=== PATIENT | female | born 1945 | race Caucasian/White ===

== ENCOUNTER 2018-10-31 18:52 | Observation (INO) | payer MEDICARE ==
[~2018-10-31] VITALS: Ht 157.5 cm; Wt 81.6 kg
--- NOTE | ~2018-10-31 | HEMODYNAMI ---
PATIENT:MELONY CHÁVEZ MEDICAL RECORD: [id number] : 45 LOCATION:[facility] D.2114 ADMISSION DATE: 10/31/18 Generatedon:11/01/201811:05 Patient name: MELONY CHÁVEZ Patient #: [id number] SSN: D OB: 1945 Date of study: 11/01/2018 Page: Of Hemodynamic Procedure Report Patient Data Patient Demographics Procedure consent was obtained First Name: MELONY Gender: Female Last Name: KYLER : 1945 Patient #: [id number] Age: 73 year(s) Race: Unknown Additional ID: [id number] Contact details [address]: [address] [place] [address] State: [place] City: [place] Zip code: [address] Admission Admission Data Admission Date: 10/31/2018 Admission Time: 20:09 Room #: D.2114 Lab Results Lab Result Date: 11/01/2018 Lab Result Time: 0:00 Biochemistry Name Units Result Min Max BUN mg/dl 16 --(---*)-- 7 18 Creatinine mg/dl 0.7 --(*---)-- 0.6 1.3 CBC Name Units Result Min Max Hemoglobin g/dl 11.9 *-(----)-- 13.5 17.5 Procedure Procedure Types Cath Procedure Diagnostic Procedure [facility] w/Coronaries Procedure Description Procedure Date Procedure Date: 11/01/2018 Procedure Start Time: 10:53 Procedure End Time: 11:02 Procedure Staff Name Function Dominick Oconnor RT Scrub Angelina Mosqueda RT Monitor Sotero Ma MD Performing Physician Lei Louis RT Display Decorator Daisy Han RN Nurse Procedure Data Cath Procedure Fluoroscopy Diagnostic fluoroscopy Total fluoroscopy Time: 1.3 time: 1.3 min min Diagnostic fluoroscopy Total fluoroscopy dose: 427 dose: 427 mGy mGy Contrast Material Contrast Material Type Amount (ml) Isovue 370 57 Entry Location Entry Primary Successful Side Size Upsize Upsize Entry Closure Servin ccessful Closure Location (Fr) 1 (Fr) 2 (Fr) Remarks Device Remarks Radial Right 6 Fr Mechanical artery Short Compression Estimated blood loss: 5 ml Diagnostic catheters Device Type Used For End Catheter Placement DIAGNOSTIC [place] 110cm 5 Multi-vessel Fr catheter ([id number]) Angiography Procedure Complications No complications Procedure Medications Medication Administration Route Dosage 0.9% NaCl I.V. 100 ml/hr Oxygen etCO2 Nasal cannula 2 l/min Lidocaine 2% added to field 20 Heparin Flush Bag added to field 2 bags (1000units/500ml NS) Versed I.V. 2 mg Fentanyl I.V. 50 mcg Hemodynamics Rest HGB: 11.9 (g/dl) Heart Rate: 95 (bpm) Pressure Samples Time Site Value (mmHg) Purpose Heart Use Rate(bpm) 10:57 LV 106/17,11 Snapshot 84 Snapshots Pre Cath Intra NCS Post Cath Vital Signs Time Heart Resp SPO2 etCO2 NIBP (mmHg) Rhythm Pain Sedation Rate (ipm) (%) (mmHg) Status Level (bpm) 10:29:38 70 10 98 39.2 181/88(139) NSR 0 (11) 10(A) , No pain 10:34:02 73 15 96 33.2 182/98(141) NSR 0 (11) 10(A) , No pain 10:38:20 69 39 93 37.7 150/83(129) NSR 0 (11) 10(A) , No pain 10:42:42 67 13 96 38.5 159/79(121) NSR 0 (11) 10(A) , No pain 10:47:04 62 13 96 38.5 144/76(132) NSR 0 (11) 10(A) , No pain 10:51:28 66 17 96 35.4 153/69(129) NSR 0 (11) 9(A) , No pain 10:55:55 72 27 96 36.9 145/76(122) NSR 0 (11) 9(A) , No pain 11:00:17 76 17 98 36.2 127/71(111) NSR 0 (11) 10(A) , No pain Medications Time Medication Route Dose Verified Delivered Reason Notes Eff ectiveness by by 10:28:33 0.9% NaCl I.V. 100 Soteroleisa Chavarriaa used for ml/hr Francesca Han riverboat captain 10:28:49 Oxygen etCO2 2 Sotero Chavarriaa used for Nasal l/min Francesca Han procedure cannula RN 10:28:54 Lidocaine 2% added 20ml Sotero Bey for local to vial Francesca Ma MD anesthetic field 10:28:59 Heparin Flush added 2 Sotero Sotero used for Bag to bags Francesca Ma MD procedure (1000units/500ml field NS) 10:50:04 Versed I.V. 2 mg Sotero Chavarriaa for Francesca Han sedation RN 10:50:10 Fentanyl I.V. 50 Sotero Daisy for mcg Francesca Han sedation fixture builder Log Time Note 10:00:48 Lei Suit RT(R) sent for patient. Start room use. 10::49 Time tracking: Regular hours (M-F 7:00 - 5:00) 10:13:52 Plan of Care:Hemodynamics will remain stable., Cardiac rhythm will remain stable., Comfort level will be maintained., Respiratory function will remain adequate., Patient/ family verbilizes understanding of procedure., Procedure tolerated without complication., Recovers from procedure without complications.. 10:19:45 Lab Result : Hemoglobin 11.9 g/dl 10:19:45 Lab Result : Creatinine 0.7 mg/dl 10:19:45 Lab Result : BUN 16 mg/dl 10:20:15 Patient received from Med II to [facility] 2 Alert and oriented. Tansferred to table in Supine position. 10:20:17 Correct patient and procedure confirmed by team. 10:20:17 Warm blankets applied, and jorge luis hugger turned on for patient comfort. 10:20:19 Signed procedure consent form obtained from patient. 10:20:20 ECG and BP/O2 sat monitors applied to patient. 10:28:20 Vital chart was started 10:28:33 0.9% NaCl 100 ml/hr I.V. was administered by Daisy Han RN; used for procedure; 10::49 Oxygen 2 l/min etCO2 Nasal cannula was administered by Daisy Han RN; used for procedure; 10:28:54 Lidocaine 2% 20ml vial added to field was administered by Sotero Ma MD; for local anesthetic; 10:28:59 Heparin Flush Bag (1000units/500ml NS) 2 bags added to field was administered by Sotero Ma MD; used for procedure; 10:34:02 Baseline sample Acquired. 10:34:43 Rhythm: sinus rhythm 10:34:51 Full Disclosure recording started 10:35:01 H&P Date Dictated: 11/01/2018 New H&P dictated by physician.. 10:35:04 Pre-op teaching completed and patient verbalized understanding. 10:35:04 Pre-procedure instructions explained to patient. 10:35:06 Family in waiting room. 10:35:07 Patient NPO since Midnight. 10:35:09 Is the patient allergic to Iodine/contrast media? No. 10:35:10 Was the patient premedicated? N/A 10:35:18 Is patient on blood thinner?No 10:35:19 Patient diabetic? No. 10:35:21 Previous problem with sedation/anesthesia? No ? 10:35:23 Snore? Yes 10:35:24 Deviated septum? No 10:35:24 Sleep apnea? No 10:35:26 Opens mouth fully? Yes 10:35:27 Sticks out tongue? Yes 10:35:28 Airway obstruction? No ? 10:35:32 Dentures? Yes in tight 10:36:16 Pre procedure: right dorsailis pedis pulse 2+ Normal; easily identifiable; not easily obliterated 10:36:19 Pre procedure: left dorsailis pedis pulse 2+ Normal; easily identifiable; not easily obliterated 10:36:28 Patient pain scale 0/10 ?. 10:37:03 IV patent on arrival in left forearm with 0.9% NaCl at [facility]. 10:37:06 Lab results completed and on chart. 10:37:09 Right Radial & Right Groin area was prepped with chlora-prep and draped in sterile fashion 10:37:10 Sharps counted by scrub and verified by R.N. 10:37:10 Alarms reviewed by R. N. 10:48:51 Zero performed for pressure channel P1 10:49:10 Physician arrived 10:49:11 Final Timeout: patient, procedure, and site verified with staff and physician. All members of the team are in agreement. 10:49:11 --------ALL STOP TIME OUT------ 10:49:13 Right Radial & Right Groin site verified by team. 10:49:16 Maximum allowable Isovue 370 dose 300ml. Physician notified. (300ml for normal creatinines. For patients with creatinine of 1.7 or higher multiply weight(kg) x 5 divided by creatinine.) 10:49:20 Fire Safety Assessment: A--An alcohol-based skin anteseptic being used preoperatively., C--Open oxygen or nitrous oxide is being used., D--An ESU, laser, or fiber-optic light is being used. 10:49:23 Physical assessment completed. ASA score P 2 - A patient with mild systemic disease as per Sotero Ma MD. 10:49:27 Sedation plan: IV Moderate Sedation Medication:Versed, Fentanyl 10:49:30 Use device set Radial Dx or PCI 10:49:32 Medline Cath Pack ([id number]) opened to sterile field. 10:49:32 ACIST Syringe (27281) opened to sterile field. 10:49:33 ACIST Hand Control (28503) opened to sterile field. 10:49:33 DIAGNOSTIC WIRE .035 260cm J wire (769296) opened to sterile field. 10:49:33 Bag Decanter (2002S) opened to sterile field. 10:49:34 Tegaderm 4 x 4 (1626W) opened to sterile field. 10:49:34 ACIST Manifold (48718) opened to sterile field. 10:49:35 MBrace Wrist Support ([id number]) opened to sterile field. 10:49:36 SHEATH 6FR Slender (44-2226) opened to sterile field. 10:50:04 Versed 2 mg I.V. was administered by Daisy Han RN; for sedation; 10:50:10 Fentanyl 50 mcg I.V. was administered by Daisy Han RN; for sedation; 10:53:14 Procedure started. 10:53:30 Local anesthetic to right radial artery with Lidocaine 2% by Sotero Ma MD.INITIAL ACCESS ONLY 10:55:20 A 6 Fr Short sheath was inserted into the Right Radial artery 10:55:39 A DIAGNOSTIC [place] 110cm 5 Fr catheter ([id number]) was advanced over the wire and used for Multi-vessel Angiography. 10:57:11 LV hemodynamics recorded. 10:57:13 LV gram done using AMEZCUA 10:57:23 Injector settings: Ml/sec: 5, Volume: 15, 10:57:28 EF : 60 % 10:57:42 LCA angiography performed. 10:57:44 Injector settings: Ml/sec: 3, Volume: 6, 10:59:40 RCA angiography performed. 11:00:06 Injector settings: Ml/sec: 3, Volume: 6, 11:00:23 Catheter removed. 11:01:16 TR BAND Standard ([id number]) opened to sterile field. 11:01:22 Sheath removed intact; hemostasis achieved with Mechanical Compression to the Right Radial artery. 11:01:24 Procedure ended.(Physican Out) 11:01:51 Fluoroscopy time 01.30 minutes. 11:01:55 Fluoroscopy dose: 427 mGy 11:01:55 Flurop Dose total: 427 11:01:58 Contrast amount:Isovue 370 57ml. 11:02:01 Sharps counted by scrub and verified by R.N. 11:02:03 TR band inflated with 12cc of air. 11:02:10 Insertion/operative site no bleeding no hematoma. 11:02:15 Post right radial artery:stable 11:02:16 Post Procedure Pulses reassessed and unchanged 11:02:19 Post procedure rhythm: unchanged. 11:02:21 Estimated blood loss: 5 ml 11:02:22 Post procedure instruction explained to patient.Patient verbalizes understanding. 11:02:23 Patient needs reinforcement of post procedure teaching. 11:02:29 Procedure and supply charges have been captured, reviewed, submitted and are correct. 11:02:33 Procedure Complication : No complications 11:02:36 Vital chart was stopped 11:02:37 See physician's report for complete and final results. 11:02:44 Report given to Med II. 11:02:46 Patient transfered to [facility] II with Stretcher. 11:02:49 Full Disclosure recording stopped 11:02:49 Procedure ended. 11:02:52 End room use (Document Last) Device Usage Item Name Manufacture Quantity Catalog Hospital Part Current Minimal Lot# / Number Charge Number Stock Stock Serial# Code ACIST Acist 1 60718 528153 484416 612524 20 Syringe AppSpotr (19149) Systems Inc Medline Medline 1 [id number] 775187 03564 468044 5 Cath Pack ([id number]) Bag Microtek 1 291681 57318 215059 5 Decanter Medical Inc. (2002S) DIAGNOSTIC [facility] 1 048119 119674 788135 081814 30 WIRE .035 260cm J wire (738461) ACIST Hand Acist 1 54270 990060 612775 356422 5 Control Medical (31276) Systems Inc ACIST Acist 1 14840 487657 745467 786615 5 Manifold Medical (20353) Systems Inc Tegaderm 4 3M 1 1626W 401200 175872 847210 5 x 4 (1626W) MBrace Advanced 1 140-0250-00 728376 51769 183154 5 Wrist Vascular Support Dynamics ([id number]) SHEATH 6FR Terumo 1 [id number] 463534 406146 962300 5 Slender (80-1060) DIAGNOSTIC Terumo 1 40-9621 500228 383848 025320 5 [place] 110cm 5 Fr catheter (469180) TR BAND Terumo 1 [id number] 200130 880151 110133 40 Standard ([id number]) Signature Audit [place] Stage Time Signature Unsigned Intra-Procedure 11/01/2018 Angelina Mosqueda 11:05:55 AM RT(R) Signatures Monitor : Angelina Mosqueda RT Signature : Date : Time : [place] [id number] [facility] [address]
--- NOTE | ~2018-10-31 | EC ---
PATIENT:MELONY CHÁVEZ DATE OF SERVICE: 10/31/18 SEX: F MEDICAL RECORD: [id number] DATE OF : 45 LOCATION:D. D.211 AGE OF PATIENT: 73 ADMISSION DATE: 10/31/18 REFERRING PHYSICIAN: INTERPRETING PHYSICIAN: CHRISTIE MA MD ECHOCARDIOGRAM REPORT ECHO CHARGES 4 ECHO COMPLETE Date: 11/01/18 CLINICAL DIAGNOSIS: MS ECHOCARDIOGRAPHIC MEASUREMENTS (adult normal given) AC root (d.<3.7cm) 2.1 cm LV Septum d (<1.2 cm> 1.3 cm Valve Excursion 0.9 cm LV Septum (systole) 1.5 cm Left Atria (s.<4.0cm> 3.6 cm LVPW d(<1.2cm) 1.6 cm RV (d.<2.3cm) 3.2 cm LVPW (sytole) 1.7 cm LV diastole(<5.6CM) 4.6 cm MV E-F(>70mm/sec) cm LV systole 2.7 cm LVOT Diameter 1.4 cm MV exc.(>10mm) 1.6 cm Est.ejection fraction (50-75%) % DOPPLER: LVIT cm/sec A 79.0 cm/sec E 88.0 cm/sec LA cm/sec RVSP 37 mmHg LVOT 131 cm/sec AOP1/2T m/s Asc. Ao 132 cm/sec RVOT 75 cm/sec RA cm/sec PA 107 cm/sec AV Gradient Peak 6.95 mmHg AV Mean 3.62 mmHg AV Area 1.5 cm MV Gradient Peak 4.23 mmHg MV Mean 1.88 mmHg MV Area cm COMMENTS: Research Specialist: 2 DOROTHEA SIDDIQUI Operations Management Professionals: 1 Dr. Ma TAPE# PACS Pericardial Effusion N DATE OF SERVICE: FINDINGS: 1. Left ventricular chamber size is within normal limits. Left ventricular systolic function is normal. Overall ejection fraction is estimated at 60%. 2. Left atrium, right atrium, and right ventricular sizes are within normal limit. 3. Valvular structures have normal structure and motion. 4. Doppler interrogation reveals mild aortic insufficiency, mild mitral regurgitation, and mild tricuspid regurgitation. No other valvular ECHOCARDIOGRAM REPORT [id number] MELONY CHÁVEZ insufficiency or stenosis. Pulmonary systolic pressure is estimated at 37 mmHg. 5. No evidence of pericardial effusion or left ventricular thrombus. TRANSINT:[id number] Voice Confirmation ID: [id number] DOCUMENT ID: [id number] CHRISTIE MA MD CC: [id number] DICTATION DATE: 11/01/18 1633 FOUNDRY MOLDER: 11/01/18 1729 ADM IN [facility] [address] [place] [address]
--- NOTE | ~2018-10-31 | DS ---
PATIENT:MELONY MUIR :45 MEDICAL RECORD: [id number] DISCHARGE SUMMARY ADMISSION DATE: 10/31/18 DISCHARGE DATE: 11/02/18 DATE OF SERVICE: 11/02/2018 DIAGNOSES: 1. Chest pain. 2. Hypertension. 3. Coronary artery disease. HOSPITAL COURSE: Mrs. Muir presents with chest pain compatible with angina; however, cardiac catheterization revealed minimal coronary disease. Her blood pressure was not well controlled. We placed her on Imdur as well as amlodipine. She had good control of her blood pressure, resolution of her symptomatology. She was discharged home to follow up with [facility] in 1 month. TRANSINT:[id number] Voice Confirmation ID: [id number] DOCUMENT ID: [id number] CHRISTIE AGUILAR MD CC: [id number] DICTATION DATE: 11/02/18924 BIAS MACHINE OPERATOR HELPER: 11/03/18724 DIS IN 11/02/18 [place] [id number] [place] [id number]
[2018-10-31] MEDS ORDERED: ZINC (19:04)
[2018-10-31] MEDS ORDERED: MAGNESIUM OXID500 MG (19:04)
[2018-10-31] MEDS ORDERED: OLIVE LEAF (19:05)
[2018-10-31] MEDS ORDERED: CINNAMON500 MG (19:05)
[2018-10-31] MEDS ORDERED: CALCIUM (19:05)
[2018-10-31] MEDS ORDERED: MOBIC7.5 MG PO (19:05)
[2018-10-31] MEDS ORDERED: SYNTHROID137 MCG PO (19:05)
[2018-10-31] MEDS ORDERED: FISH OIL (19:06)
[2018-10-31] MEDS ORDERED: NITROQUICK0.4 MG (19:06)
[2018-10-31] MEDS ORDERED: PRIMROSE OIL (19:06)
[2018-10-31 19:40] LABS: BASOPHILS 0.3 % (0-2); HEMATOCRIT 35.9 % (36.0-48.0); HEMOGLOBIN 11.9 g/dL (12-16); IMMATURE GRANULOCYTES 0.9 % (0-5); LYMPHOCYTES 16.8 % (15-50); MCH 29.8 pg (26.0-34.0); MCHC 33.1 g/dL (31.0-37.0); MCV 89.8 fL (80.0-100.0); MEAN PLATELET VOLUME 10.2 fL (7.4-10.4); MONOCYTES 9.3 % (2-11); NEUTROPHILS 70.7 % (40-80); PLATELET COUNT 179 10x3/uL (130-400); RDW 13.4 % (11.5-14.5)
[2018-10-31 19:52] VITALS: BP 154/67
[2018-10-31 19:59] LABS: INR 1.07 (0.85-1.17); PROTIME 13.4 SECONDS (11.6-15.0)
[2018-10-31 20:00] VITALS: BP 177/71
[2018-10-31 20:14] LABS: ALBUMIN 3.6 g/dL (3.4-5.0); ALKALINE PHOSPHATASE 102 U/L (46-116); ALT (SGPT) 32 U/L (10-68); CALC OSMOLALITY 279 mosm/kg (275-300); CALCIUM 8.6 mg/dL (8.5-10.1); CARBON DIOXIDE 26.6 mmol/L (21.0-32.0); CHLORIDE - SERUM 104 mmol/L (98-107); CREATININE - SERUM 0.5 mg/dL (0.6-1.3); GLUCOSE 114 mg/dL (74-106); POTASSIUM - SERUM 3.5 mmol/L (3.5-5.1); PROTEIN - SERUM 7.3 g/dL (6.4-8.2); SODIUM 140 mmol/L (136-145); UREA NITROGEN 12 mg/dL (7-18); eGFR NON AFRICAN AMERICAN > 90 mL/min (90-120)
[2018-10-31 20:24] LABS: CKMB 5.3 U/L (0.0-3.6); CREATINE KINASE 154 UL (21-215); MAGNESIUM - SERUM 1.6 mg/dL (1.8-2.4)
[2018-10-31 20:25] LABS: TROPONIN-I 0.128 ng/mL (0.000-0.060)
[2018-10-31] MEDS ORDERED: COMBIGAN OPHT DR5 ML EACH EYE (23:57)
[2018-10-31] MEDS ORDERED: XALATAN 0.0052.5 ML EACH EYE (23:57)
[2018-11-01] VITALS (7 sets, daily range): BP systolic 124–171; BP diastolic 58–86; Ht 157.5 cm; Wt 81.6 kg
[2018-11-01] MEDS ORDERED: SYNTHROID200 MC1 PO (00:16)
--- NOTE | 2018-11-01 00:57 | NUR ---
PATIENT RESTING COMFORTABLY IN BED. RESPIRATIONS ARE EVEN AND UNLABORED. NO S/S OF DISTRESS. NO C/O PAIN. DENIES NEEDS. CALL LIGHT WITHIN REACH. FAMILY AT BEDSIDE. WILL CPOC.
[2018-11-01 03:13] LABS: HEMATOCRIT 35.2 % (36.0-48.0); HEMOGLOBIN 11.9 g/dL (12-16); LYMPHOCYTES 24.6 % (15-50); MCH 30.7 pg (26.0-34.0); MCHC 33.8 g/dL (31.0-37.0); MCV 90.7 fL (80.0-100.0); MEAN PLATELET VOLUME 10.2 fL (7.4-10.4); NEUTROPHILS 64.4 % (40-80); PLATELET COUNT 179 10x3/uL (130-400); RBC 3.88 10x6/uL (4.00-5.40); RDW 13.4 % (11.5-14.5)
[2018-11-01 03:21] LABS: WBC 5.1 10x3/uL (4.8-10.8)
[2018-11-01 03:38] LABS: CALCIUM 8.7 mg/dL (8.5-10.1); CARBON DIOXIDE 28.9 mmol/L (21.0-32.0); CHLORIDE - SERUM 105 mmol/L (98-107); GLUCOSE 118 mg/dL (74-106); SODIUM 143 mmol/L (136-145)
[2018-11-01 04:10] LABS: CALC OSMOLALITY 286 mosm/kg (275-300); CREATININE - SERUM 0.7 mg/dL (0.6-1.3); TROPONIN-I 0.106 ng/mL (0.000-0.060); UREA NITROGEN 16 mg/dL (7-18); eGFR NON AFRICAN AMERICAN 87 mL/min (90-120)
--- NOTE | 2018-11-01 07:30 | NUR ---
ALERT AND ORIENTED. TELEMERTY SHOWS SR 71. LEFT FA SL. UP AB EMILEE. DENIES ANY NEEDS. FAMILY AT BEDSIDE. NPO FOR CATH TODAY
--- NOTE | 2018-11-01 11:27 | NUR ---
BACK FROM BIOPHYSICS PROFESSOR. TELEMERTY SHOWS NSR 58. CATH SITE TO RIGHT WRIST. FINGERSWARM. NO BLEEDING NOTED. SR UP WITH CALL LIGHT IN REACH
--- NOTE | 2018-11-01 14:05 | NUR ---
LYING QUIETLY. UNABLE TO TAKE TR BAND OFF DUE TO BLEEDING. V/S STABLE, TELEMERTY HOWS SR. DENIES ANY NEEDS
--- NOTE | 2018-11-01 17:17 | OP ---
PATIENT NAME: MELONY CHÁVEZ MEDICAL RECORD: [id number] :45 LOCATION:D.M2 D.2114 ADMISSION DATE:10/31/18 SURGEON: CHRISTIE AGUILAR MD DATE OF OPERATION: 11/01/2018 PROCEDURES: 1. Left heart catheterization. 2. Selective coronary angiography. 3. Left ventriculogram. INDICATION: Non-Q-wave myocardial infarction and coronary artery disease and hypertension. PROCEDURE IN DETAIL: After informed consent was obtained and after a detailed description of risks, benefits as well as alternative therapies, the patient elected to proceed with angiogram and heart catheterization. The right radial area was prepped and draped in normal sterile fashion. Right radial artery was cannulated via modified Seldinger technique with placement of 5-Swedish sheath. All catheters exchanged through this sheath. FINDINGS: Left ventriculogram was performed in standard 30-degree AMEZCUA view, reveals good cardiac wall motion throughout all segments. Overall ejection fraction estimated 60%. SELECTIVE CORONARY ANGIOGRAPHY: 1. Left main is with no significant angiographic disease. 2. Left anterior descending has moderate irregularities, but no flow-limiting stenosis. 3. The left circumflex has moderate irregularities, but no flow-limiting stenosis. 4. Right coronary artery has moderate irregularities, but no flow-limiting stenosis. OVERALL IMPRESSION: Minimal coronary artery disease is present. Center medical management on treatment of the hypertension. TRANSINT:[id number] Voice Confirmation ID: [id number] DOCUMENT ID: [id number] CHRISTIE AGUILAR MD at 1717 CC: [id number] DICTATION DATE: 11/01/18 1111 SINGLE SPINDLE SCREW MACHINE OPERATOR: 11/01/18 1132 ADM IN [place] [id number] [place] [address]
--- NOTE | 2018-11-01 17:17 | HP ---
PATIENT: MELONY MUIR MEDICAL RECORD: [id number] ACCOUNT: [id number] LOCATION:[address] : 45 ADMISSION DATE: 10/31/18 PCP: No PCP HISTORY AND PHYSICAL EXAMINATION DIAGNOSES: 1. Non-Q-wave myocardial infarction. 2. Coronary artery disease. 3. Hypertension. HISTORY OF PRESENT ILLNESS: Mrs. Muir has had 3 weeks of increasing episodes of chest discomfort. She was seen in the [facility] set for risk stratification with stress testing Cardiolite imaging. She had the stress test done. She had chest pain with the stress test. She continued to have chest pain, presented to [facility]. She was given Cardene and nitro drip and transferred here for a higher level of care. She continues to have some episodes of chest pain this morning. Her EKG is with no acute changes. Her troponin is elevated. PHYSICAL EXAMINATION: GENERAL APPEARANCE: Well-nourished, well-developed, appears stated age. Level of distress, comfortable. PSYCHIATRIC: Mental status, alert, normal affect. Orientation, oriented to time, place and person. EYES: Lids and conjunctiva, noninjected. No discharge, no pallor. ENT: Lips, teeth, gums, normal dentition. Oropharynx, no cyanosis, no pallor. NECK: Carotid arteries, bilateral normal upstroke, no bruits, no thrills. JUGULAR VEINS: No jugular venous pressure or distention. CERVICAL LYMPH NODES: Nontender, nonenlarged. THYROID: Not enlarged. Nontender. No nodules. LUNGS: Respiratory effort, unlabored. CHEST: Normal curvature. No thoracic deformity. No chest wall tenderness. Percussion, resonant. Auscultation, clear. No wheezes, no rales, no rhonchi. CARDIOVASCULAR: Precordial exam, nondisplaced. No heaves or pericardial thrills. Rate and rhythm, regular. Heart sounds, normal S1, normal S2. No S3, no gallop, no rub. Systolic murmur, not heard. Diastolic murmur, not heard. EXTREMITIES: No cyanosis, no edema. Peripheral pulses, full and equal in all extremities, except as noted. No bruits appreciated. ABDOMEN: Soft, nondistended. Normal aorta. No bruit. Nontender. No masses. Liver, nontender, no hepatomegaly. Spleen, nontender, no splenomegaly. MUSCULOSKELETAL: No joint tenderness. No joint swelling. No erythema. NEUROLOGICAL: Normal gait, normal strength, normal tone. SKIN: Warm and dry. OVERALL IMPRESSION: Non-Q-wave myocardial infarction with continued chest pain. At this time, she is bradycardic, hence does not need a beta-david. She had received long-acting nitrates as well as Cardene. She continues to have chest pain. We will continue calcium channel david with amlodipine to maximize her medical therapy and proceed with coronary angiography due to continued symptoms despite the medical therapy. TRANSINT:[id number] Voice Confirmation ID: [id number] DOCUMENT ID: [id number] HISTORY AND PHYSICAL [id number] MELONY MUIR JEFFREY MD at 1717 CC: [id number] DICTATION DATE: 11/01/1838 DOG FOOD SHREDDER OPERATOR: 11/01/18 0856 ADM IN [facility] [address] [place] [address]
--- NOTE | 2018-11-01 19:31 | NUR ---
RESUMING PATIENT CARE. PATIENT IS ALERT AND ORIENTED, RESTING COMFORTABLY IN BED. RESPIRATIONS ARE EVEN AND UNLABORED. NO S/S OF DISTRESS. NO C/O PAIN. NEEDS MET. CALL LIGHT WITHIN REACH. WILL CPOC.
[2018-11-02 00:08] VITALS: BP 123/54
[2018-11-02 04:00] VITALS: BP 136/59
[2018-11-02 08:44] VITALS: BP 102/57
[2018-11-02] MEDS ORDERED: NORVASC5 MG PO (09:53)
[2018-11-02] MEDS ORDERED: ISOSORBIDE MONO30 M1 PO (09:53)
--- NOTE | 2018-11-02 10:20 | NUR ---
IV AND TELEMETRY DCD. DC PLANS GIVEN. UNDERSTANDING VOICED. ESCORTED TO CAR BY W/C.
== END 2018-11-02 10:21 | disposition home or self-care (01) ==
LOC: D.ER 18:52 → OBSVTIME 20:09 → D.M2 20:09
PROVIDERS: Family Medicine; ADMIT Internal Medicine Interventional Cardiology; ATTEND Internal Medicine Interventional Cardiology
DX: I21.4 Non-ST elevation (NSTEMI) myocardial infarction (principal); I25.10 Atherosclerotic heart disease of native coronary artery without angina pectoris; I10 Essential (primary) hypertension